=== PATIENT | male | born 1950 | race Two or more races ===

== ENCOUNTER → 2021-12-30 | Outpatient (CLI) | payer OTHER ==
[2021-12-30 08:58] LABS: Basophils # (auto) 0.1 10 ^3/uL (0-0.2); Basophils % (auto) 0.9 % (0.0-2.0); Eosinophils # (auto) 0.3 10 ^3/uL (0-0.8); Eosinophils % (auto) 4.3 % (0.0-7.0); Hematocrit 42.6 % (41.0-53.0); Hemoglobin 14.5 g/dL (13.5-17.5); Lymphocytes % (auto) 30.5 % (10.0-50.0); Mean Corpuscular Hemoglobin 31.2 pg (28.0-32.0); Mean Corpuscular Hgb Conc. 34.1 g/dL (32.0-36.0); Mean Corpuscular Volume 91.3 fL (80.0-100.0); Monocytes # (auto) 0.5 10 ^3/uL (0-1.3); Monocytes % (auto) 8.1 % (0.0-12.0); Neutrophils # (auto) 3.6 10 ^3/uL (1.6-8.6); Neutrophils % (auto) 56.2 % (37.0-80.0); Nucleated Red Blood Cells % 0.1 %; Red Blood Cells 4.67 10^6/uL (4.5-5.90); Red Cell Distribution Width 13.9 % (11.8-14.3); White Blood Cell 6.4 10^3/uL (4.4-10.8)
[2021-12-30 09:11] LABS: Urine Bacteria NONE SEEN /hpf (None Seen); Urine Blood Negative /uL (Negative); Urine Hyaline Cast MANY /lpf (0 - 2); Urine Mucus FEW (None Seen); Urine Specific Gravity 1.026 (1.001-1.035); Urine WBC 2 /hpf (0 - 3)
[2021-12-30 10:13] LABS: Albumin 3.5 g/dL (3.4-5.0); BUN/Creatinine Ratio 13.1; Bilirubin, Total 0.4 mg/dL (0.2-1.0); Calcium 9.2 mg/dL (8.5-10.1); Total Protein 7.3 g/dL (6.4-8.2); Uric Acid 6.6 mg/dL (3.5-7.2)
== END | disposition home or self-care (01) ==
LOC: LAB 07:55
PROVIDERS: ATTEND Internal Medicine
DX: N40.0 Benign prostatic hyperplasia without lower urinary tract symptoms (principal); I10 Essential (primary) hypertension; E78.5 Hyperlipidemia, unspecified; M10.9 Gout, unspecified
CPT/HCPCS: 36415; 80053; 80061; 81001; 83036; 83880; 84153; 84443; 84550; 85025

== ENCOUNTER → 2022-04-05 | Outpatient (CLI) | payer OTHER ==
[2022-04-06 03:27] LABS: Cholesterol 143 mg/dL (< 200); HDL Cholesterol 35 mg/dL (40-59); LDL Cholesterol 93 mg/dL (< 100); Triglycerides 109 mg/dL (< 150)
== END | disposition home or self-care (01) ==
LOC: LAB 11:22
PROVIDERS: ATTEND Internal Medicine
DX: R73.03 Prediabetes (principal); E78.5 Hyperlipidemia, unspecified
CPT/HCPCS: 36415; 80061; 82043

== ENCOUNTER 2022-06-10 08:24 | Emergency (ER) | payer OTHER ==
[~2022-06-10] VITALS: Ht 167.6 cm; Wt 95.4 kg
[2022-06-10 09:07] VITALS: BP 117/75
== END 2022-06-10 10:55 | disposition home or self-care (01) ==
LOC: ER 08:24
DX: S70.11XA Contusion of right thigh, initial encounter (principal); I10 Essential (primary) hypertension; E11.9 Type 2 diabetes mellitus without complications; E78.5 Hyperlipidemia, unspecified; Z95.1 Presence of aortocoronary bypass graft; X58.XXXA Exposure to other specified factors, initial encounter; Y93.89 Activity, other specified; Y92.89 Other specified places as the place of occurrence of the external cause; Y99.8 Other external cause status
CPT/HCPCS: 93971

== ENCOUNTER → 2022-07-05 | Outpatient (CLI) | payer OTHER ==
[2022-07-05 12:52] LABS: Cholesterol 160 mg/dL (< 200); HDL Cholesterol 38 mg/dL (40-59); LDL Cholesterol 94 mg/dL (< 100); Triglycerides 216 mg/dL (< 150)
== END | disposition home or self-care (01) ==
LOC: LAB 10:50
PROVIDERS: ATTEND Internal Medicine
DX: R73.03 Prediabetes (principal)
CPT/HCPCS: 36415; 80061; 83036

== ENCOUNTER → 2022-12-06 | Outpatient (CLI) | payer OTHER | END | disposition home or self-care (01) | LOC: LAB 10:49 | PROVIDERS: ATTEND Internal Medicine | DX: Z00.00 Encounter for general adult medical examination without abnormal findings (principal); Z12.11 Encounter for screening for malignant neoplasm of colon; J44.9 Chronic obstructive pulmonary disease, unspecified; R73.03 Prediabetes | CPT/HCPCS: 36415; 80061; 82043; 83036; 84153; 84550 ==

== ENCOUNTER → 2024-06-28 | Outpatient (CLI) | payer OTHER ==
[2024-06-28 13:56] LABS: Urine Bacteria None Seen /hpf (None Seen)
[2024-06-28 14:00] LABS: Basophils # (auto) 0 10 ^3/uL (0-0.2); Basophils % (auto) 0.6 % (0.0-2.0); Eosinophils # (auto) 0.2 10 ^3/uL (0-0.8); Eosinophils % (auto) 5.1 % (0.0-7.0); Hematocrit 37.1 % (41.0-53.0); Hemoglobin 12.9 g/dL (13.5-17.5); Lymphocytes # (auto) 1.5 10 ^3/uL (0.4-5.4); Lymphocytes % (auto) 30.8 % (10.0-50.0); Mean Corpuscular Hemoglobin 31.5 pg (28.0-32.0); Mean Corpuscular Hgb Conc. 34.9 g/dL (32.0-36.0); Mean Corpuscular Volume 90.3 fL (80.0-100.0); Monocytes # (auto) 0.5 10 ^3/uL (0-1.3); Monocytes % (auto) 10.6 % (0.0-12.0); Neutrophils # (auto) 2.6 10 ^3/uL (1.6-8.6); Neutrophils % (auto) 52.9 % (37.0-80.0); Platelet Count (auto) 174 10^3/uL (140-450); Red Blood Cells 4.11 10^6/uL (4.5-5.90); Red Cell Distribution Width 13.5 % (11.8-14.3); White Blood Cell 4.9 10^3/uL (4.4-10.8)
[2024-06-28 14:16] LABS: Urine Blood Negative /uL (Negative); Urine Clarity Clear (Clear); Urine Protein, UAD Negative (Negative); Urine Specific Gravity 1.006 (1.001-1.035); Urine Urobilinogen Normal (Negative); Urine WBC <1 /hpf (0 - 3)
[2024-06-28 14:20] LABS: Urine Color Light-Yellow (Yellow)
[2024-06-28 14:35] LABS: Creatinine, Urine 30.65 mg/dL (30.0-125.0)
[2024-06-28 14:36] LABS: Prostate Specific Antigen 0.05 ng/mL (0.0-4.0)
[2024-06-28 14:37] LABS: Alanine Aminotransferase 18 U/L (7-40); Albumin 4.5 g/dL (3.2-4.8); Alkaline Phosphatase 65 U/L (46-116); Anion Gap 8 (5-15); Aspartate Aminotransferase 13 U/L (13-40); BUN/Creatinine Ratio 14.4 (10.0-20.0); Blood Urea Nitrogen 16 mg/dL (9-23); Calcium 9.7 mg/dL (8.7-10.4); Carbon Dioxide 24 mmol/L (20-31); Chloride 111 mmol/L (98-107); Glucose 90 mg/dL (74-106); LDL Cholesterol 93 mg/dL (< 100); Micro Albumin < 3.0 mg/L (<30.0); Potassium 4.1 mmol/L (3.5-5.1); Sodium 143 mmol/L (136-145); Triglycerides 150 mg/dL (< 150)
[2024-06-28 14:38] LABS: Bilirubin, Total 0.6 mg/dL (0.2-1.0); Cholesterol 145 mg/dL (< 200); HDL Cholesterol 37 mg/dL (40-59); Total Protein 6.9 g/dL (5.7-8.2)
== END | disposition home or self-care (01) ==
LOC: LAB 13:43
PROVIDERS: ATTEND Internal Medicine
DX: Z12.11 Encounter for screening for malignant neoplasm of colon (principal); J44.9 Chronic obstructive pulmonary disease, unspecified; E78.5 Hyperlipidemia, unspecified; E11.9 Type 2 diabetes mellitus without complications; R06.02 Shortness of breath
CPT/HCPCS: 36415; 80053; 80061; 81001; 82043; 82306; 82570; 82607; 83036; 83880; 84153; 84443; 85025

== ENCOUNTER → 2024-06-28 | Outpatient (CLI) | payer OTHER | END | disposition home or self-care (01) | LOC: XYW 12:25 | PROVIDERS: ATTEND Internal Medicine | DX: I08.3 Combined rheumatic disorders of mitral, aortic and tricuspid valves (principal); R06.02 Shortness of breath; E66.9 Obesity, unspecified; Z95.1 Presence of aortocoronary bypass graft | CPT/HCPCS: 93306 ==

== ENCOUNTER → 2024-08-29 | Outpatient (CLI) | payer OTHER | END | disposition home or self-care (01) | LOC: LAB 13:39 | PROVIDERS: ATTEND Urology | DX: R35.1 Nocturia (principal) | CPT/HCPCS: 36415; 84153; 84403 ==

== ENCOUNTER → 2024-09-12 | Outpatient (CLI) | payer OTHER ==
[~2024-09-12] VITALS: Ht 167.6 cm; Wt 93.9 kg
[2024-09-12] MEDS: REGADENOSON 0.4 MG/5 ML SYRG IV ONE ×2 (11:11)
--- NOTE | 2024-09-12 12:54 | DVHSR ---
APPROVED REPORT Exam: Nuclear Stress Test BMI: 0 Stress Test Details HR Max Heart Rate (APMHR): 148.559021 bpm Target HR (85% APMHR): 125.557769 bpm BP ECG Stress ECG Conclusion Resting ECG shows normal sinus rhythm. At peak stress level no dynamic EKG changes was noted. Resting images shows near homogeneous uptake of radioactive tracer throughout the myocardium without evidence of myocardial infarction. Stress images shows near homogeneous uptake of radioactive tracer throughout the myocardium without e vidence of myocardial ischemia. Well-preserved left ventricular systolic function at 78%. Impression: Negative stress test for ischemia, low risk study. NM EXAM: Myocardial Perfusion REST/STRESS Imaging Protocol: Rest Tc-99m/Stress Tc-99m 1 day Resting Data Rest SPECT myocardial perfusion imaging was performed in supine position 60 minutes following the int ravenous injection of 14.6 mCi of Tc-99m Sestamibi. Time of rest injection: 0955 Date: 09/12/2024 Time of rest imagin Date: 09/12/2024 Administration Route: IV Administration Site: Right Hand Pharmacologic Stress Pharmacologic stress test was performed by injecting Regadenoson 0.4 mg IV push followed by the intra venous injection of 35.4 mCi of Tc-99m Sestamibi. Time of stress injection: 1110 Date: 09/12/2024 Time of stress imagin Date: 09/12/2024 Administration Route: IV Administration Site: Right Hand Gated Stress SPECT was performed 60 minutes after stress injection. The images were gated to evaluate regional wall motion and calculate left ventricular ejection fracti on. Stress only was performed in the Supine position. Nuclear Conclusion ECG Findings: negative for ischemia Clinical Findings: negative for ischemia Nuclear Findings: negative for ischemia Exercise Capacity: not assessed Left Ventricular Function: normal Risk Study: low Resting ECG shows normal sinus rhythm. At peak stress level no dynamic EKG changes was noted. Resting images shows near homogeneous uptake of radioactive tracer throughout the myocardium without evidence of myocardial infarction. Stress images shows near homogeneous uptake of radioactive tracer throughout the myocardium without e vidence of myocardial ischemia. Well-preserved left ventricular systolic function at 78%. Impression: Negative stress test for ischemia, low risk study.
== END | disposition home or self-care (01) ==
LOC: XYW 10:08
PROVIDERS: ATTEND Student in an Organized Health Care Education/Training Program
DX: R06.02 Shortness of breath (principal)
CPT/HCPCS: 78452; 93017; A9500; J2785

== ENCOUNTER → 2024-10-25 | Outpatient (CLI) | payer OTHER ==
[2024-10-25 10:22] LABS: Basophils # (auto) 0 10 ^3/uL (0-0.2); Basophils % (auto) 0.6 % (0.0-2.0); Eosinophils # (auto) 0.4 10 ^3/uL (0-0.8); Eosinophils % (auto) 6.3 % (0.0-7.0); Hematocrit 40.6 % (41.0-53.0); Hemoglobin 13.5 g/dL (13.5-17.5); Lymphocytes # (auto) 1.5 10 ^3/uL (0.4-5.4); Lymphocytes % (auto) 21.4 % (10.0-50.0); Mean Corpuscular Hemoglobin 30.9 pg (28.0-32.0); Mean Corpuscular Hgb Conc. 33.3 g/dL (32.0-36.0); Mean Corpuscular Volume 92.7 fL (80.0-100.0); Monocytes # (auto) 0.7 10 ^3/uL (0-1.3); Monocytes % (auto) 10.4 % (0.0-12.0); Neutrophils # (auto) 4.3 10 ^3/uL (1.6-8.6); Neutrophils % (auto) 61.3 % (37.0-80.0); Nucleated Red Blood Cells % 0.1 %; Platelet Count (auto) 215 10^3/uL (140-450); Red Blood Cells 4.38 10^6/uL (4.5-5.90); Red Cell Distribution Width 14.1 % (11.8-14.3); White Blood Cell 7.1 10^3/uL (4.4-10.8)
[2024-10-25 11:29] LABS: Folate (Folic Acid) 20.88 ng/mL (>5.38)
== END | disposition home or self-care (01) ==
LOC: LAB 09:43
PROVIDERS: ATTEND Internal Medicine
DX: E55.9 Vitamin D deficiency, unspecified (principal); R73.03 Prediabetes
CPT/HCPCS: 36415; 82607; 82746; 85025

== ENCOUNTER → 2024-11-21 | Day surgery (SDC) | payer OTHER, MEDICAID ==
[2024-11-20 09:47] LABS: Urine Bacteria None Seen /hpf (None Seen)
[2024-11-20 10:08] LABS: Basophils # (auto) 0 10 ^3/uL (0-0.2); Basophils % (auto) 0.5 % (0.0-2.0); Eosinophils # (auto) 0.2 10 ^3/uL (0-0.8); Eosinophils % (auto) 4.4 % (0.0-7.0); Hematocrit 43.8 % (41.0-53.0); Hemoglobin 14.3 g/dL (13.5-17.5); Lymphocytes # (auto) 1.5 10 ^3/uL (0.4-5.4); Lymphocytes % (auto) 27.4 % (10.0-50.0); Mean Corpuscular Hemoglobin 30.2 pg (28.0-32.0); Mean Corpuscular Hgb Conc. 32.6 g/dL (32.0-36.0); Mean Corpuscular Volume 92.5 fL (80.0-100.0); Monocytes # (auto) 0.5 10 ^3/uL (0-1.3); Monocytes % (auto) 9.1 % (0.0-12.0); Neutrophils # (auto) 3.1 10 ^3/uL (1.6-8.6); Neutrophils % (auto) 58.6 % (37.0-80.0); Nucleated Red Blood Cells % 0.1 %; Platelet Count (auto) 186 10^3/uL (140-450); Red Blood Cells 4.74 10^6/uL (4.5-5.90); Red Cell Distribution Width 14.3 % (11.8-14.3); White Blood Cell 5.3 10^3/uL (4.4-10.8)
[2024-11-20 10:30] LABS: Urine Blood Negative /uL (Negative); Urine Clarity Clear (Clear); Urine Color Yellow (Yellow); Urine Protein, UAD Negative (Negative); Urine Specific Gravity 1.024 (1.001-1.035); Urine Squamous Epithelial Cell None Seen /hpf (<5); Urine Urobilinogen Normal (Negative); Urine WBC < 1 /HPF (0-3)
[2024-11-20 10:35] LABS: INR 0.99 (0.9-1.15); Partial Thromboplastin Time 27.9 SEC (24.5-34.5); Prothrombin Time 10.5 sec (9.3-11.8)
[2024-11-20 10:45] LABS: Alanine Aminotransferase 16 U/L (7-40); Albumin 4.7 g/dL (3.2-4.8); Alkaline Phosphatase 61 U/L (46-116); Anion Gap 10 (5-15); Aspartate Aminotransferase 14 U/L (13-40); BUN/Creatinine Ratio 15.6 (10.0-20.0); Blood Urea Nitrogen 17 mg/dL (9-23); Carbon Dioxide 23 mmol/L (20-31); Glucose 88 mg/dL (74-106); Potassium 4.3 mmol/L (3.5-5.1); Sodium 142 mmol/L (136-145)
[2024-11-20 10:46] LABS: Bilirubin, Total 0.3 mg/dL (0.2-1.0); Total Protein 6.9 g/dL (5.7-8.2)
[2024-11-20 11:00] LABS: Chloride 109 mmol/L (98-107)
[~2024-11-21] VITALS: Ht 167.6 cm; Wt 94.8 kg
[~2024-11-21] MED LIST: ACCU-CHEK COMFORT CURVE STRIP VI ONE; ALLO300T2 PO; AMLO1TAB23 PO; ASPI1TAB20 PO; DIAZ10TA66 PO; FINA5TAB4 PO; FLUT1AER3 IN; GABA-1250 PO; GLYCOPYRROLATE 0.2 MG/ML 1ML VIAL ONE; HYDR1TAB97 PO; HYDROmorphone HCL 2 MG/ML VL/or syr IV PRN; HYDROmorphone HCL 2 MG/ML VL/or syr ONE; LIDOCAINE 1% INJ PF 5ML AMP ONE; LIDOCAINE 1%-Mpf/Epinephrine 1:200,000 30ml VIAL ONE; LISI20TA56 PO; MELO7.5T7 PO; METO-289 PO; MIDAZOLAM HCL 2MG/2ML 2ml VIAL (1mg/ml) ONE; ONDANSETRON HCL 4 MG/2 ML VIAL IV ONE; ONDANSETRON HCL 4 MG/2 ML VIAL ONE; PRAV20TA3 PO; PROPOFOL 10 MG/ML 20 ML IV ONE; TIRZ2.5I SC; VALS320T PO; fentaNYL CITRATE 100 MCG/2 ML VL ONE
--- NOTE | 2024-11-21 12:29 | DVHDS2 ---
New Physician D'charge PN Admitting Diagnosis Admitting Diagnosis Left testicular pain BPH Discharge Diagnosis Same Operations or Procedures Left simple orchiectomy Diagnostic cystoscopy Reason(s) For Hospitalization Surgery Treatment Plan Discharge Condition of Discharge Fair Disposition Home Discharge Instructions Diet: Regular Activity: Light activity Activity comment: Scrotal support x2 weeks Medications: Given Follow Up Care Follow Up/Referral: Two weeks for pathology results Discharge Statement: "Patient was advised to return to the ER or call 911 if any headaches, dizziness, shortness of breath, chest pain, abdominal pain, bleeding, fevers, or worsening of medical condition. Patient was counseled about treatment plan, medications, possible side effects, patientverbalized understanding. All questions were answered to the best of my ability. This discharge took greater then 30 minutes in planning, reviewing documentation, counseling the patient, and discussing with other team members." MADDIE CASTILLO MD Nov 21, 2024 12:29
[2024-11-21] MEDS: ceFAZolin 1GM/50ML 100 ML IV ONE (12:40)
[2024-11-21] MEDS: Lidocaine/Epinephrine 1%-1:100,000 30ML VL ONE (12:43)
--- NOTE | 2024-11-21 13:11 | DVHNC2 ---
Procedure - OPERATIVE REPORT Pre-op. Diagnosis: left testicular pain, chronic BPH Post-op. Diagnosis: Same as pre-op diagnosis Operation: Left Simple Orchiectomy diagnostic cystoscopy Anesthesia: General Indications: patient has chronic left testicular pain and he requested the surgical removal. He has some BPH symptoms and will undergo cystoscopy at the same setting.Complications including but not limited to infection, bleeding, damage to surrounding structures, hematoma formation and risks of anesthesia were all discussed. Informed consent was obtained. Details of Procedure: Patient was taken to Operating suite and given appropriate anesthesia. After shaving, prepping and draping the patient in the supine position, a Vertical midline incision was made in the scrotal raphe. Subsequent tissues were taken down with Bovie to the level of tunica vaginalis. Left Simple orchiectomy - opening the left tunica vaginalis, the left testicle w as identified with hydrocele. Hydrocele sac was opened and excised. I clamped across the Left spermatic cord in two separate segments and then used zero silk suture in order to tie off near the inguinal ring. I suture ligated the cord in two separate bundles. Hemostasis was assured. Testicle was handed off as a specimen. Proper two layer closure was performed. Skin was closed with 3-0 Chromic interrupted vertical mattress suture. 1% Lidocaine with 0.25% marcaine was used for local anesthesia. Fluffs with scrotal support was placed. Patient tolerated the procedure well. next a flexible cystoscope was used to inspect the urethra in the bladder. There were no strictures in the urethra. Prostatic urethra shows slight coaptation of lateral lobes. No significant protrusion or median lobe encountered. Bladder was inspected with no foreign body, tumors or stones seen. Minimal trabeculation of the bladder mucosa was appreciated. Cystoscope was removed in entirety. General anesthesia was reversed and patient was taken to recovery room in stable condition. Specimens: Left Testicle Complications: None Findings: As above Notes: patient is a candidate for UroLift procedure if indicated MADDIE CASTILLO MD Nov 21, 2024 13:11
[2024-11-21 13:14] VITALS: PULSE 95; RESP 12; TEMP 98.2; O2SAT 94
[2024-11-21 14:00] VITALS: BP 130/87; PULSE 89; RESP 16; O2SAT 22
== END | disposition home or self-care (01) ==
LOC: SUR 10:41
PROVIDERS: ATTEND Urology
DX: N50.812 Left testicular pain (principal); N40.1 Benign prostatic hyperplasia with lower urinary tract symptoms; R35.1 Nocturia; N32.89 Other specified disorders of bladder; J45.909 Unspecified asthma, uncomplicated; Z87.891 Personal history of nicotine dependence; N43.3 Hydrocele, unspecified; Z95.1 Presence of aortocoronary bypass graft
CPT/HCPCS: 36415; 54520; 55040; 80053; 81001; 82962; 85025; 85610; 85730; 87086; 88305; J0690; J1171; J2250; J2405; J2704; J3010

== ENCOUNTER 2025-01-07 07:23 | Day surgery (SDC) | payer OTHER, MEDICAID ==
[2025-01-01 11:40] LABS: Urine Bacteria None Seen /hpf (None Seen)
[2025-01-01 11:45] LABS: Basophils # (auto) 0 10 ^3/uL (0-0.2); Basophils % (auto) 0.4 % (0.0-2.0); Eosinophils # (auto) 0.3 10 ^3/uL (0-0.8); Eosinophils % (auto) 4.2 % (0.0-7.0); Hematocrit 36.7 % (41.0-53.0); Hemoglobin 12.6 g/dL (13.5-17.5); Lymphocytes # (auto) 1.8 10 ^3/uL (0.4-5.4); Lymphocytes % (auto) 28.9 % (10.0-50.0); Mean Corpuscular Hemoglobin 31.5 pg (28.0-32.0); Mean Corpuscular Hgb Conc. 34.3 g/dL (32.0-36.0); Mean Corpuscular Volume 91.8 fL (80.0-100.0); Monocytes # (auto) 0.6 10 ^3/uL (0-1.3); Monocytes % (auto) 10.2 % (0.0-12.0); Neutrophils # (auto) 3.4 10 ^3/uL (1.6-8.6); Neutrophils % (auto) 56.3 % (37.0-80.0); Nucleated Red Blood Cells % 0.1 %; Platelet Count (auto) 161 10^3/uL (140-450); Red Blood Cells 4.01 10^6/uL (4.5-5.90); Red Cell Distribution Width 14.3 % (11.8-14.3); White Blood Cell 6.1 10^3/uL (4.4-10.8)
[2025-01-01 11:47] LABS: Urine Blood Negative /uL (Negative); Urine Clarity Clear (Clear); Urine Color Yellow (Yellow); Urine Protein, UAD TRACE (Negative); Urine Specific Gravity 1.038 (1.001-1.035); Urine Squamous Epithelial Cell None Seen /hpf (<5); Urine Urobilinogen 2 mg/dL (Negative); Urine WBC 1 /HPF (0-3)
[2025-01-01 12:03] LABS: INR 0.99 (0.9-1.15); Partial Thromboplastin Time 27.1 SEC (24.5-34.5); Prothrombin Time 10.5 sec (9.3-11.8)
[2025-01-01 12:05] LABS: Alanine Aminotransferase 18 U/L (7-40); Albumin 4.2 g/dL (3.2-4.8); Alkaline Phosphatase 58 U/L (46-116); Anion Gap 6 (5-15); BUN/Creatinine Ratio 28.7 (10.0-20.0); Calcium 9.4 mg/dL (8.7-10.4); Carbon Dioxide 23 mmol/L (20-31); Potassium 4.8 mmol/L (3.5-5.1); Sodium 140 mmol/L (136-145); Total Protein 6.3 g/dL (5.7-8.2)
[2025-01-01 12:07] LABS: Aspartate Aminotransferase 11 U/L (13-40); Bilirubin, Total 0.3 mg/dL (0.2-1.0); Blood Urea Nitrogen 33 mg/dL (9-23); Chloride 111 mmol/L (98-107); Glucose 111 mg/dL (74-106)
[~2025-01-07] VITALS: Ht 167.6 cm; Wt 95.7 kg
[~2025-01-07 07:23] MED LIST changes: -ACCU-CHEK COMFORT CURVE STRIP VI ONE; -GLYCOPYRROLATE 0.2 MG/ML 1ML VIAL ONE; -HYDROmorphone HCL 2 MG/ML VL/or syr IV PRN; -HYDROmorphone HCL 2 MG/ML VL/or syr ONE; +IBUP-1454 PO; -LIDOCAINE 1% INJ PF 5ML AMP ONE; -LIDOCAINE 1%-Mpf/Epinephrine 1:200,000 30ml VIAL ONE; -MIDAZOLAM HCL 2MG/2ML 2ml VIAL (1mg/ml) ONE; -ONDANSETRON HCL 4 MG/2 ML VIAL IV ONE; -ONDANSETRON HCL 4 MG/2 ML VIAL ONE; -PROPOFOL 10 MG/ML 20 ML IV ONE; -fentaNYL CITRATE 100 MCG/2 ML VL ONE
[2025-01-07] MEDS ORDERED: ceFAZolin 2 GM/D5W50ml 50 ML IV ONE (08:29)
[2025-01-07] MEDS ORDERED: fentaNYL CITRATE 100 MCG/2 ML VL ONE ×2 (10:14→11:05)
[2025-01-07] MEDS ORDERED: PROPOFOL 10 MG/ML 20 ML IV ONE (10:14)
[2025-01-07] MEDS ORDERED: ONDANSETRON HCL 4 MG/2 ML VIAL ONE ×2 (10:28→10:35)
[2025-01-07] MEDS ORDERED: ePHEDrine SULFATE 50 MG/ML AMP ONE (10:35)
[2025-01-07 11:20] VITALS: PULSE 67; RESP 12; TEMP 96.9; O2SAT 86
--- NOTE | 2025-01-07 11:21 | DVHNC2 ---
Procedure - OPERATIVE REPORT Pre-op. Diagnosis: BPH with Obstruction Post-op. Diagnosis: Same as pre-op diagnosis Operation: Urolift - Prostate Implant Anesthesia: General Indications: Patient suffers from obstructive voiding dysfunction. Treatment options were discussed including ongoing therapy with pharmaceutical such as alpha blocking agents (Flomax/UroXatral/Rapaflow), or Prostate shrinking agents (proscar/Avodart); In-office prostate therapies (TUMT/Indigo Laser/TUNA); or Outpatient procedures such as Green light laser photovaporization/Enucleation/TURP) as well urolift. Corresponding advantages and disadvantages were also discussed. Questions were addressed. Complication include but nt limited to infection, bleeding, damage to the surrounding structures, ejaculatory dysfunction, erectile dysfunction, need for secondary procedures were discussed. Informed consent was obtained. Details of Procedure: Patient was brought to the operating room. After administration of anesthesia, he was placed in the lithotomy position. The area of genitalia was prepped and draped in standard surgical and sterile fashion. The 20 F access sheath was introduced into the bladder under direct vision. Bladder was emptied and the Urolift device was introduced. Six implants were permanently placed at the 10 a& 2 O'clock positions near the bladder neck and apical tissue to lift the kissing lateral lobes out of the way and to create a channel in the prostatic urethra and the urethral bladder neck opening. The implants were delivered through a needle that comes out of the Urolift delivery device and into the prostate. Patient tolerated the procedure well. He was awaken and taken to RR in stable condition. All instrument counts were correct at the end of the procedure. Specimens: None Complications: None Findings: Notes: Visit Code: Procedure Codes: 94394 CYSTOURETHRO W/IMPLANT. 41529 CYSTOURETHRO W/ADDL IMPLANT. Units: 5.00. MADDIE CASTILLO MD Jan 07, 2025 11:20
--- NOTE | 2025-01-07 11:23 | DVHDS2 ---
New Physician D'charge PN Admitting Diagnosis Admitting Diagnosis BPH Discharge Diagnosis Same Operations or Procedures UroLift prostate implants Reason(s) For Hospitalization Surgery Treatment Plan Discharge Condition of Discharge Fair Disposition Home Discharge Instructions Diet: Regular Activity: Light activity Activity comment: As tolerated Medications: Given Follow Up Care Follow Up/Referral: Two weeks Discharge Statement: "Patient was advised to return to the ER or call 911 if any headaches, dizziness, shortness of breath, chest pain, abdominal pain, bleeding, fevers, or worsening of medical condition. Patient was counseled about treatment plan, medications, possible side effects, patientverbalized understanding. All questions were answered to the best of my ability. This discharge took greater then 30 minutes in planning, reviewing documentation, counseling the patient, and discussing with other team members." MADDIE CASTILLO MD Jan 07, 2025 11:23
[2025-01-07 11:25] VITALS: PULSE 66; RESP 11; O2SAT 92
[2025-01-07 11:40] VITALS: PULSE 66; RESP 13; O2SAT 95
[2025-01-07 11:55] VITALS: PULSE 66; RESP 12; O2SAT 94
[2025-01-07 12:05] VITALS: BP 117/71; PULSE 73; RESP 13; O2SAT 94
== END 2025-01-07 12:53 | disposition home or self-care (01) ==
LOC: SUR 07:23
PROVIDERS: ATTEND Urology
DX: N40.1 Benign prostatic hyperplasia with lower urinary tract symptoms (principal); N13.8 Other obstructive and reflux uropathy; E11.9 Type 2 diabetes mellitus without complications; J45.909 Unspecified asthma, uncomplicated; Z79.899 Other long term (current) drug therapy; Z98.890 Other specified postprocedural states
CPT/HCPCS: 36415; 52441; 52442; 80053; 81001; 82962; 85025; 85610; 85730; 87086; J0690; J2405; J2704; J3010; L8699

== ENCOUNTER → 2025-01-23 | Day surgery (SDC) | payer OTHER, MEDICAID ==
[2025-01-22 13:00] LABS: Urine Bacteria None Seen /hpf (None Seen)
[2025-01-22 13:07] LABS: Basophils # (auto) 0 10 ^3/uL (0-0.2); Basophils % (auto) 0.5 % (0.0-2.0); Eosinophils # (auto) 0.2 10 ^3/uL (0-0.8); Eosinophils % (auto) 3.2 % (0.0-7.0); Hematocrit 43.3 % (41.0-53.0); Hemoglobin 14.5 g/dL (13.5-17.5); Lymphocytes # (auto) 1.7 10 ^3/uL (0.4-5.4); Lymphocytes % (auto) 28.1 % (10.0-50.0); Mean Corpuscular Hemoglobin 30.3 pg (28.0-32.0); Mean Corpuscular Hgb Conc. 33.5 g/dL (32.0-36.0); Mean Corpuscular Volume 90.5 fL (80.0-100.0); Monocytes # (auto) 0.6 10 ^3/uL (0-1.3); Monocytes % (auto) 10.6 % (0.0-12.0); Neutrophils # (auto) 3.5 10 ^3/uL (1.6-8.6); Neutrophils % (auto) 57.6 % (37.0-80.0); Nucleated Red Blood Cells % 0.3 %; Platelet Count (auto) 180 10^3/uL (140-450); Red Blood Cells 4.79 10^6/uL (4.5-5.90)
[2025-01-22 13:18] LABS: Urine Blood Negative /uL (Negative); Urine Clarity Turbid (Clear); Urine Color Dark-Orange (Yellow); Urine Protein, UAD Negative (Negative); Urine Specific Gravity 1.016 (1.001-1.035); Urine Squamous Epithelial Cell None Seen /hpf (<5); Urine Urobilinogen 2 mg/dL (Negative); Urine WBC 2 /HPF (0-3)
[2025-01-22 13:19] LABS: INR 0.99 (0.9-1.15); Partial Thromboplastin Time 28.2 SEC (24.5-34.5); Prothrombin Time 10.5 sec (9.3-11.8)
[2025-01-22 13:24] LABS: Alanine Aminotransferase 21 U/L (7-40); Albumin 4.8 g/dL (3.2-4.8); Alkaline Phosphatase 66 U/L (46-116); Anion Gap 6 (5-15); Aspartate Aminotransferase 17 U/L (13-40); BUN/Creatinine Ratio 27.8 (10.0-20.0); Carbon Dioxide 25 mmol/L (20-31); Glucose 99 mg/dL (74-106); Potassium 4.6 mmol/L (3.5-5.1); Sodium 141 mmol/L (136-145); Total Protein 7.4 g/dL (5.7-8.2)
[2025-01-22 13:25] LABS: Bilirubin, Total 0.4 mg/dL (0.2-1.0)
[2025-01-22 13:28] LABS: Blood Urea Nitrogen 32 mg/dL (9-23); Chloride 110 mmol/L (98-107)
[~2025-01-23] VITALS: Ht 167.6 cm; Wt 90.7 kg
[~2025-01-23] MED LIST changes: +ALBUAER3 IN; +ASCO500T11 GT; +BISA10SU45 RE; +CHOLCAP10 PO; +CIPROFLOXACIN 400MG/200ML 200 ML IV ONE; +DIAZ10TA3 PO; -FINA5TAB4 PO; -IBUP-1454 PO; +METH50006 SL; +OMEG100062 PO; +SEMA2INJ3 SC; -TIRZ2.5I SC; -VALS320T PO; +ZOLP12.569 PO
== END | disposition home or self-care (01) ==
LOC: SUR 06:26
PROVIDERS: ATTEND Urology
DX: N40.1 Benign prostatic hyperplasia with lower urinary tract symptoms (principal); Z53.8 Procedure and treatment not carried out for other reasons; E78.5 Hyperlipidemia, unspecified; I10 Essential (primary) hypertension; J44.9 Chronic obstructive pulmonary disease, unspecified; F17.200 Nicotine dependence, unspecified, uncomplicated; Z79.899 Other long term (current) drug therapy; Z98.890 Other specified postprocedural states; R32 Unspecified urinary incontinence
CPT/HCPCS: 36415; 80053; 81001; 85025; 85610; 85730; 87086; J0744

== ENCOUNTER → 2025-03-25 | Outpatient (CLI) | payer OTHER, MEDICAID ==
[~2025-03-25] MED LIST changes: -CIPROFLOXACIN 400MG/200ML 200 ML IV ONE
[2025-03-25 09:58] LABS: Alanine Aminotransferase 18 U/L (7-40); Albumin 4.7 g/dL (3.2-4.8); Alkaline Phosphatase 65 U/L (46-116); Anion Gap 9 (5-15); BUN/Creatinine Ratio 15.9 (10.0-20.0); Blood Urea Nitrogen 22 mg/dL (9-23); Calcium 9.9 mg/dL (8.7-10.4); Carbon Dioxide 26 mmol/L (20-31); Glucose 97 mg/dL (74-106); Potassium 4.1 mmol/L (3.5-5.1); Total Protein 6.9 g/dL (5.7-8.2)
[2025-03-25 09:59] LABS: Bilirubin, Total 0.4 mg/dL (0.2-1.0)
[2025-03-25 10:03] LABS: Chloride 111 mmol/L (98-107); Microalb/Creat Ratio, Urine 5.0; Sodium 146 mmol/L (136-145)
[2025-03-25 10:43] LABS: Uric Acid 6.2 mg/dL (3.7-9.2)
== END | disposition home or self-care (01) ==
LOC: LAB 09:10
PROVIDERS: ATTEND Internal Medicine
DX: E55.9 Vitamin D deficiency, unspecified (principal); R73.03 Prediabetes; Z00.00 Encounter for general adult medical examination without abnormal findings
CPT/HCPCS: 36415; 80053; 82043; 82570; 83036; 84550

== ENCOUNTER → 2025-04-04 | Outpatient (CLI) | payer OTHER, MEDICAID ==
[2025-04-04 10:18] LABS: Potassium 4.1 mmol/L (3.5-5.1); Sodium 145 mmol/L (136-145)
[2025-04-04 10:19] LABS: Anion Gap 9 (5-15); Carbon Dioxide 26 mmol/L (20-31)
[2025-04-04 10:20] LABS: Calcium 9.5 mg/dL (8.7-10.4)
[2025-04-04 10:24] LABS: BUN/Creatinine Ratio 17.9 (10.0-20.0); Blood Urea Nitrogen 21 mg/dL (9-23); Chloride 110 mmol/L (98-107); Glucose 106 mg/dL (74-106)
== END | disposition home or self-care (01) ==
LOC: LAB 09:20
PROVIDERS: ATTEND Internal Medicine
DX: N18.31 Chronic kidney disease, stage 3a (principal)
CPT/HCPCS: 36415; 80048

== ENCOUNTER 2025-06-26 10:50 | Outpatient (CLI) | payer OTHER, MEDICAID ==
[2025-06-26 11:42] LABS: Alanine Aminotransferase 15 U/L (7-40); Albumin 4.4 g/dL (3.2-4.8); Alkaline Phosphatase 61 U/L (46-116); Anion Gap 11 (5-15); BUN/Creatinine Ratio 9.9 (10.0-20.0); Blood Urea Nitrogen 15 mg/dL (9-23); Calcium 9.5 mg/dL (8.7-10.4); Carbon Dioxide 25 mmol/L (20-31); Glucose 95 mg/dL (74-106); Potassium 4.1 mmol/L (3.5-5.1); Sodium 145 mmol/L (136-145); Total Protein 7.1 g/dL (5.7-8.2)
[2025-06-26 11:43] LABS: Bilirubin, Total 0.4 mg/dL (0.2-1.0)
[2025-06-26 11:45] LABS: Chloride 109 mmol/L (98-107)
== END 2025-06-26 17:00 | disposition home or self-care (01) ==
LOC: LAB 10:50
PROVIDERS: ATTEND Internal Medicine
DX: E11.22 Type 2 diabetes mellitus with diabetic chronic kidney disease (principal); N18.31 Chronic kidney disease, stage 3a
CPT/HCPCS: 36415; 80053; 83036

== ENCOUNTER 2025-07-29 07:12 | Day surgery (SDC) | payer OTHER, MEDICAID ==
[2025-07-28 16:21] LABS: Hematocrit 41.1 % (41.0-53.0); Hemoglobin 13.6 g/dL (13.5-17.5); Mean Corpuscular Hemoglobin 30.7 pg (28.0-32.0); Mean Corpuscular Volume 92.8 fL (80.0-100.0); Nucleated Red Blood Cells % 0.0 %
[2025-07-28 16:22] LABS: Alanine Aminotransferase 26 U/L (7-40); Albumin 4.6 g/dL (3.2-4.8); Alkaline Phosphatase 76 U/L (46-116); Anion Gap 11 (5-15); BUN/Creatinine Ratio 7.9 (10.0-20.0); Bilirubin, Total 0.4 mg/dL (0.2-1.0); Blood Urea Nitrogen 13 mg/dL (9-23); Calcium 9.4 mg/dL (8.7-10.4); Carbon Dioxide 26 mmol/L (20-31); Glucose 80 mg/dL (74-106); Potassium 3.8 mmol/L (3.5-5.1); Sodium 144 mmol/L (136-145); Total Protein 7.4 g/dL (5.7-8.2)
[2025-07-28 16:26] LABS: Chloride 107 mmol/L (98-107)
[2025-07-28 16:30] LABS: Urine Protein, UAD Negative (Negative)
[2025-07-28 16:37] LABS: INR 1.03 (0.9-1.15); Partial Thromboplastin Time 29.4 SEC (24.5-34.5); Prothrombin Time 10.9 sec (9.3-11.8)
[~2025-07-29] VITALS: Ht 167.6 cm; Wt 95.7 kg
[~2025-07-29 07:12] MED LIST changes: -ASCO500T11 GT; +BENZ100C97 PO; -BISA10SU45 RE; -CHOLCAP10 PO; -DIAZ10TA3 PO; -DIAZ10TA66 PO; +FINA5TAB4 PO; +IBUP200C53 PO; -METH50006 SL; -OMEG100062 PO; -SEMA2INJ3 SC; -ZOLP12.569 PO; +[UNRECOGNIZED DRUG - CODE] PO
[2025-07-29] MEDS ORDERED: SUCCINYLCHOLINE 20mg/ml 100mg/5ml SYRINGE IV ONE (07:13)
[2025-07-29] MEDS: CIPROFLOXACIN 400MG/200ML 200 ML IV ONE (08:55)
[2025-07-29] MEDS ORDERED: MORPHINE SULFATE 4 MG/ML SYR/VIAL IV PRN (09:00)
[2025-07-29] MEDS ORDERED: ONDANSETRON HCL 4 MG/2 ML VIAL IV PRN (09:00)
[2025-07-29] MEDS ORDERED: hydrALAZINE HCL 20 MG/ML VL IV PRN (09:00)
[2025-07-29] MEDS ORDERED: MIDAZOLAM HCL 2MG/2ML 2ml VIAL (1mg/ml) IV PRN (09:00)
[2025-07-29] MEDS ORDERED: HYDROmorphone HCL 2 MG/ML VL/or syr IV PRN (09:00)
[2025-07-29] MEDS ORDERED: MEPERIDINE HCL (25 MG/ML) 1ML VIAL ONE (09:36)
[2025-07-29] MEDS ORDERED: fentaNYL CITRATE 100 MCG/2 ML VL ONE (09:37)
[2025-07-29] MEDS ORDERED: MIDAZOLAM HCL 2MG/2ML 2ml VIAL (1mg/ml) ONE (09:37)
[2025-07-29] MEDS ORDERED: ETOMIDATE (2MG/ML) 20ML VIAL IV ONE (09:37)
--- NOTE | 2025-07-29 09:41 | DVHDS2 ---
New Physician D'charge PN Admitting Diagnosis Admitting Diagnosis BPH Discharge Diagnosis Same Operations or Procedures GreenLight laser prostatectomy with removal of UroLift implants Reason(s) For Hospitalization Surgery Treatment Plan Discharge Condition of Discharge Good Disposition Home Discharge Instructions Diet: Regular Activity: Light activity Activity comment: Morse catheter to gravity Medications: Given Follow Up Care Follow Up/Referral: Voiding trial on postop day 1. Discharge Statement: "Patient was advised to return to the ER or call 911 if any headaches, dizziness, shortness of breath, chest pain, abdominal pain, bleeding, fevers, or worsening of medical condition. Patient was counseled about treatment plan, medications, possible side effects, patientverbalized understanding. All questions were answered to the best of my ability. This discharge took greater then 30 minutes in planning, reviewing documentation, counseling the patient, and discussing with other team members." MADDIE CASTILLO MD Jul 29, 2025 09:41
--- NOTE | 2025-07-29 09:41 | DVHNC2 ---
Procedure - OPERATIVE REPORT Pre-op. Diagnosis: BPH (N40.1) LUTs/PLASCENCIA Postvoid dribbling s/p Urolift Post-op. Diagnosis: Same as pre-op diagnosis Operation: Laser Enucleation of Prostate Gland (KTP/Greenlight) Removal of Urolift implants Anesthesia: General Indications: Patient has symptomatic BPH with LUTs and bladder outlet obstruction. The indications, risks, complications, alternatives and benefits of laser enucleation of prostate gland are discussed with patient. All questions were encouraged and answered. He is aware of specific risk/complications including but not limited to infection, bleeding, urinary incontinence, impotence, retrograde ejaculation, recurrent scar formation (strictures) and possible need for additional therapy(-ies). He is also aware of the alternative of this procedure including conservative management, medical therapy, minimally invasive procedures such as TUNA, TUMT, Urolift, and other forms of prostatectomy such as transurethral prostatectomy and open simple prostatectomy. Patient is competent and understands the discussion. He elected to proceed. Details of Procedure: After administration of anesthesia, he was positioned in the lithotomy position. His genitalia was prepped and draped in standard surgical and sterile fashion. The 24 F laser scope sheath is introduced into the bladder under direct vision using the 30 degree lens. Using the Moxy-fiber system and NS irrigation, prostate gland was enucleated and vaporized in systematic fashion using the energy settings from 120- 180 Joules. Prostatic enucleation of lateral/median lobes and vaporization of tissues from the bladder neck to veru montanum was performed taking care not to injure the external sphinctor. The ureteric orifices were noted and avoided of any thermal injury. Urolift implants were removed with grasping forceps. [address] Morse catheter was placed for postoperative irrigation and drainage of bladder. Patient tolerated the procedure well. He was awaken and taken to RR in stable condition. All instrument counts were correct at the end of the procedure. Specimens: The prostatic tissue specimens are sent to pathology for evaluation. Complications: None Findings: EBL: minimal Prostate configuration: bilobar hyperplasia Total energy in Joules: 107K MADDIE CASTILLO MD Jul 29, 2025 09:41
[2025-07-29 09:55] VITALS: PULSE 67; RESP 13; TEMP 97; O2SAT 97
[2025-07-29 11:25] VITALS: BP 137/77; PULSE 59; RESP 15; O2SAT 97
== END 2025-07-29 11:59 | disposition home or self-care (01) ==
LOC: SUR 07:12
PROVIDERS: ATTEND Urology
DX: N40.1 Benign prostatic hyperplasia with lower urinary tract symptoms (principal); R35.1 Nocturia; I12.9 Hypertensive chronic kidney disease with stage 1 through stage 4 chronic kidney disease, or unspecified chronic kidney disease; E11.22 Type 2 diabetes mellitus with diabetic chronic kidney disease; N18.30 Chronic kidney disease, stage 3 unspecified; J45.909 Unspecified asthma, uncomplicated; Z95.1 Presence of aortocoronary bypass graft; Z98.890 Other specified postprocedural states; Z87.891 Personal history of nicotine dependence; Z79.82 Long term (current) use of aspirin; Z79.899 Other long term (current) drug therapy
CPT/HCPCS: 36415; 52649; 80053; 81001; 85025; 85610; 85730; 87086; 88300; J0330; J0744; J1100; J2175; J2250; J3010

== ENCOUNTER 2025-08-20 06:02 | Outpatient (CLI) | payer OTHER, MEDICAID ==
[2025-08-20 09:50] LABS: Urine Protein, UAD TRACE (Negative)
== END 2025-08-20 17:00 | disposition home or self-care (01) ==
LOC: LAB 06:02
PROVIDERS: ATTEND Urology
DX: R32 Unspecified urinary incontinence (principal)
CPT/HCPCS: 81001; 87086